=== PATIENT | female | born 1940 | race Caucasian/White ===

== ENCOUNTER 2017-12-17 15:57 | Inpatient (IN) | payer OTHER, MEDICARE ==
[~2017-12-17] VITALS: Ht 165.1 cm; Wt 99.8 kg
[~2017-12-17 15:57] MED LIST: ASPIRIN CHILDRE81 MG PO; ASPIRIN81 M4 PO; CALTRATE 600600 MG PO; CELEBREX200 MG PO; EZFE 200200 MG PO; LEVOTHYROXINE100 MC1 PO; LOPERAMIDE2 MG PO; LOSARTAN POTASS25 M1 PO; MULTIVITAMINS1 EAC9 PO; OMEPRAZOLE20 MG PO; TYLENOL EXTRA500 M2 PO; VITAMIN D1000 UNIT PO; VITAMIN D3400 UNI1 PO; ZOCOR20 M1 PO
[2017-12-17 16:30] LABS: ABSOLUTE BASOPHIL COUNT 0 /CUMM (0.0-0.2); ABSOLUTE EOSINOPHIL COUNT 0.2 /CUMM (0.0-0.7); ABSOLUTE GRANULOCYTE CT 4.4 /CUMM (1.4-6.5); ABSOLUTE LYMPH COUNT 1.3 /CUMM (1.2-3.4); ABSOLUTE MONOCYTE COUNT 0.4 /CUMM (0.10-0.60); BASOPHIL % 0.7 % (0.0-2.0); EOSINOPHIL % 2.4 % (0-5); GRANULOCYTE % 69.1 % (42.2-75.2); MEAN CORPUSCULAR HGB 26.5 PG (27.0-31.0); MEAN CORPUSCULAR HGB CONC 32.5 G/DL (33.0-37.0); MEAN CORPUSCULAR VOLUME 81.5 FL (81.0-99.0); MEAN PLATELET VOLUME 7.1 FL (7.4-10.4); PLATELET COUNT 416 /CUMM (130-400); RBC DISTRIBUTION WIDTH 15.4 % (11.5-14.5); RED BLOOD CELL CT 4.29 /CUMM (4.20-5.40); WHITE BLOOD CELL COUNT 6.3 /CUMM (4.8-10.8)
--- NOTE | 2017-12-17 17:45 | ED GENERAL ADULT ---
History of Present Illness General Chief Complaint: Chest Pain Stated Complaint: PT SIB BY DR SHARPE CHEST DISCOMFORT Source: patient Exam Limitations: no limitations Allergies Coded Allergies: No Known Allergies (12/17/17) Reconcile Medications Acetaminophen (8 Hour Pain Relief) 650 MG TABLET.ER 2 TAB PO DAILY PAIN ( Reported) Aspirin (Aspirin*) 81 MG TAB.CHEW 1 TAB PO DAILY HEART HEALTH (Reported) Calcium Carbonate/Vitamin D3 (Caltrate 600 + D Tablet) (Unknown Strength) TABLET (Unknown Dose) PO DAILY SUPPLEMENT (Reported) Cholecalciferol (Vitamin D3) (Vitamin D) 1,000 UNIT TABLET 1 TAB PO DAILY VITAMIN (Reported) Colchicine 0.6 MG TABLET 1 TAB PO DAILY INFLAMMATORY (Reported) Ferrous Sulfate 325 MG (65 MG IRON) TABLET 1 TAB PO QWED SUPPLEMENT (Reported ) Levothyroxine Sodium 100 MCG TABLET 1 TAB PO DAILY THYROID (Reported) Losartan Potassium 25 MG TABLET 1 TAB PO DAILY HTN (Reported) Multiple Vitamin (Multivitamins) 1 EACH TABLET 1 TAB PO TUESSAT VITAMIN ( Reported) Simvastatin (Zocor*) 20 MG TABLET 1 TAB PO QPM CHOLESTEROL (Reported) Vitamin E 400 UNIT CAPSULE 1 CAP PO DAILY SUPPLEMENT (Reported) Triage Note: PT SENT TO ED BY DR. SHARPE FOR INTERMITTENT L SIDED RIB PAIN THAT OCCASIONALLY ACHES INTO MID STERNAL CHEST AREA. PT REPORTS PAIN IS SOMETIMES WORSE WITH MOVEMENT. REPORTS SOME SOB WITH EXERTION ONLY. DENIES NUMBNESS OR TINGING. Triage Nurses Notes Reviewed? yes Onset: Gradual Duration: week(s): Timing: INTERMITTENT HPI: 77 y/o female with h/o HTN, HLD, and hypothyroid presenting with intermittent chest pain over the past several weeks. Patient reports intermittent left-sided chest pain, that usually has no worsening or alleviating factors, but is sometimes worse with movement. Reports that she has occasional dyspnea on exertion. Denies diaphoresis, nausea, vomiting, palpitations, leg swelling. Patient has been seen by Dr. Sharpe who noted elevated inflammatory markers and outpatient labs. Patient was referred into the emergency department for echocardiogram. (Whitney Valdez) Vital Signs & Intake/Output Vital Signs & Intake/Output Vital Signs Date Time Temp Pulse Resp B/P B/P Pulse O2 O2 Flow FiO2 Mean Ox Delivery Rate 12/176 97.8 85 17 144/68 98 Room Air 12/17 1902 98.1 81 18 148/72 98 Room Air 12/17 1815 Room Air 12/17 1613 97.6 92 18 131/77 98 Room Air (Pili BAY,Sergei Mead) Past History Travel History Traveled to [place] past 21 day No Medical History Any Pertinent Medical History? 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 No (Whitney Valdez) Review of Systems Review of Systems Constitutional: Reports: no symptoms. EENTM: Reports: no symptoms. Respiratory: Reports: no symptoms. Cardiovascular: Reports: see HPI. GI: Reports: no symptoms. Genitourinary: Reports: no symptoms. Musculoskeletal: Reports: no symptoms. Skin: Reports: no symptoms. Neurological/Psychological: Reports: no symptoms. Hematologic/Endocrine: Reports: no symptoms. Immunologic/Allergic: Reports: no symptoms. (Whitney Valdez) Physical Exam Physical Exam General Appearance: well developed/nourished, no apparent distress, alert, awake , comfortable Head: atraumatic, normal appearance Eyes: Bilateral: normal appearance. Neck: normal inspection Respiratory: normal breath sounds, lungs clear Cardiovascular: regular rate/rhythm Gastrointestinal: soft, non-tender Back: normal inspection Extremities: normal inspection Neurologic/Psych: awake, alert, oriented x 3, normal gait, normal mood/affect Skin: intact, normal color, warm/dry Core Measures ACS in differential dx? No CVA/TIA Diagnosis: No Sepsis Present: No Sepsis Focused Exam Completed? No (Whitney Valdez) Progress Differential Diagnoses I considered the following diagnoses in my evaluation of the patient: [ACS versus angina versus pericarditis versus pericardial effusion versus Not versus PE versus pneumothorax versus pneumonia versus aortic dissection versus Boerhaave's versus MSK strain] Initial ED EKG: NSR, no ST T wave changes (Whitney Valdez) Plan of Care: Orders Procedure Date/time Status Heart Healthy Diet 12/18 B Active BASIC ELECTROLYTES PLUS BUN&CR 12/18 599 Active Saline Lock 12/17 2033 Active Pathway - chart 12/17 2033 Active House Staff 12/17 2033 Active Patient Data 12/[address] in observation 12/17 2001 Active Misc Message 12/17 2001 Active ED Holding Orders 12/17 2001 Active Vital Signs 12/17 2001 Active Code Status 12/17 2001 Active Add-on Test (ER Only) 12/17 181 Active Add-on Test (ER Only) 12/17 1746 Active Add-on Test (ER Only) 12/17 174 Active MAGNESIUM 12/17 161 Complete WESTERGREN SED RATE 12/17 161 Complete C-REACTIVE PROTEIN 12/17 161 Complete B-TYPE NATRIURETIC PEP (BNP) 12/17 161 Complete Intake & Output 12/17 161 Active TROPONIN LEVEL 12/17 161 Complete COMPREHENSIVE METABOLIC PANEL 12/17 161 Complete CBC WITHOUT DIFFERENTIAL 12/17 161 Complete EKG 12/17 1559 Active VTE Mechanical Prophylaxis 12/17 UNK Active MISTAKE 12/17 UNK Active Intake & Output 12/17 UNK Active Current Medications Sig/Britney Start time Last Medication Dose Stop Time Status Admin Enoxaparin Sodium 40 MG DAILY 12/18 899 AC (Lovenox) Colchicine 600 MCG BID 12/17 1929 AC 12/17 (Colchicine 600MCG 2037 Tab) Methylprednisolone 40 MG DAILY 12/17 1929 AC 12/17 (Solumedrol) 2037 Laboratory Tests 12/17/178: Anion Gap 10, Estimated GFR 54 L, BUN/Creatinine Ratio 17.0, Glucose 113 H, Calcium 9.6, Magnesium 2.2, Total Bilirubin 0.6, AST 22, ALT 33, Alkaline Phosphatase 135 H, Troponin I < 0.01, C-Reactive Prot, Quant 4.4 H, Pro-B- Natriuretic Pept 1000 H, Total Protein 6.7, Albumin 3.5, Globulin 3.2, Albumin/ Globulin Ratio 1.1, CBC w Diff NO MAN DIFF REQ, RBC 4.29, MCV 81.5, MCH 26.5 L, MCHC 32.5 L, RDW 15.4 H, MPV 7.1 L, Gran % 69.1, Lymphocytes % 20.9, Monocytes % 6.9, Eosinophils % 2.4, Basophils % 0.7, Absolute Granulocytes 4.4, Absolute Lymphocytes 1.3, Absolute Monocytes 0.4, Absolute Eosinophils 0.2, Absolute Basophils 0, ESR Westergren 75 H EKG is nonischemic Labs show elevated ESR and CRP, BMP is also mildly elevated to 1000 Echo CONCLUSIONS 1. Normal EF of 60%. 2. Mild pulmonic insufficiency. 3. Small pericardial effusion with mild tamponade physiology. Discussed with Dr. Sharpe and will plan for admission to [facility] with colchicine twice a day and 40 mg of Solu-Medrol daily. Discussed admission with Dr. Patterson. (Whitney Valdez) (Pili BAY,Sergei Mead) Departure Departure Disposition: STILL A PATIENT Condition: Stable Clinical Impression Primary Impression: Pericarditis Secondary Impressions: Pericardial effusion Referrals: Kiet BAY,Sadi Romero (PCP/Family) Departure Forms: Customer Survey General Discharge Information Observation Note Spoke With: Law Patterson MD Physician Advisor Notified: EDINSON BAY,LINDSEY Mejía (case management) Place Patient In: Non-ED OBS Care Area Rationale for Observation: My rational for observation is as follows [IV steroids, colchicine, hemodynamic monitoring, telemetry monitoring, cardiology consultation]. (Whitney Valdez) PA/SUBMARINE ADVISORY TEAM WATCH OFFICER Co-Sign Statement Statement: ED Attending supervision documentation- [X] I saw and evaluated the patient. I have also reviewed all the pertinent lab results and diagnostic results. I agree with the findings and the plan of care as documented in the PA's/SUBMARINE ADVISORY TEAM WATCH OFFICER's documentation. Patient presents at the request of her primary care physician for a pericardial effusion seen on the CAT scan. The patient at this point is comfortable with an unremarkable heart and lung examination. [] I have reviewed the ED Record and agree with the PA's/SUBMARINE ADVISORY TEAM WATCH OFFICER's documentation. [] Additions or exceptions (if any) to the PAs/SUBMARINE ADVISORY TEAM WATCH OFFICER's note and plan are summarized below: [] (Pili BAY,Sergei Mead) Critical Care Note Critical Care Note Critical Care Time: non-applicable (Whitney Valdez)
[2017-12-17] MEDS ORDERED: COLCHICINE0.6 M2 PO (18:02)
[2017-12-17] MEDS ORDERED: CALTRATE 600 +1 EACH PO (18:02)
[2017-12-17] MEDS ORDERED: VITAMIN E400 UNI5 PO (18:03)
[2017-12-17] MEDS ORDERED: FERROUS SULFAT325 M3 PO (18:03)
[2017-12-17] MEDS ORDERED: 8 HOUR PAIN RE650 M1 PO (18:04)
--- NOTE | 2017-12-17 19:22 | ECHOCARDIOGRAM REPORT ---
BOBBY WRIGHT Age: 77 : 1940 Gender: F Exam Date: 12/17/2017 17:13 Exam Location: [facility] Ht (in): 65 Wt (lb): 220 BSA: 2.18 BP: 131 / 77 Ordering Physician: Sergei Alejandre MD Referring Physician: Sergei Alejandre MD Technologist: Nate aBrker [facility] Room Number: [id number] Indications: PERICARDIAL EFFUSION Rhythm: sinus tachycardia Technical Quality: fair FINDINGS Left Ventricle Normal left ventricular size, wall thickness and systolic function with no obvious regional wall motion abnormalities. Normal left ventricular diastolic filling pattern for age. The ejection fraction is visually estimated at 60%. Right Ventricle The right ventricle is normal in size and function. Right Atrium The right atrium is normal in size. Left Atrium The left atrium is normal in size. The interatrial septum is intact. Mitral Valve The mitral valve demonstrates mild annular calcification with normal function. There is no mitral regurgitation. Aortic Valve Structurally normal aortic valve without significant sclerosis or stenosis. There is no aortic regurgitation. Tricuspid Valve The tricuspid valve is normal in structure and function. There is no tricuspid regurgitation. Pulmonic Valve Structurally normal pulmonic valve. There is mild pulmonic regurgitation. Pericardium Normal pericardium with small effusion. Right atrial diastolic collapse is noted along with respiratory variation across the mitral valve consistent with mild tamponade physiology. No pleural effusion. Great Vessels Normal aortic root dimension. The aortic arch and great vessels are well seen and are normal. CONCLUSIONS 1. Normal EF of 60%. 2. Mild pulmonic insufficiency. 3. Small pericardial effusion with mild tamponade physiology. Kel Beebe M.D. (Electronically Signed) Final Date: 17 December 2017 19:21 MEASUREMENTS (Male / Female) Normal Values 2D ECHO LV Diastolic Diameter PLAX 4.9 cm 4.2 - 5.9 / 3.9 - 5.3 cm LV Systolic Diameter PLAX 2.6 cm 2.1 - 4.0 cm LV Fractional Shortening PLAX 46.9 % 25 - 46 % LV Ejection Fraction 2D Teich 78.2 % IVS Diastolic Thickness 1.3 cm LVPW Diastolic Thickness 1.1 cm LV Relative Wall Thickness 0.5 LA Systolic Diameter LX 3.9 cm 3.0 - 4.0 / 2.7 - 3.8 cm LV Diastolic Length 4C 7.1 cm 6.9 - 10.3 cm LV Diastolic Area 4C 31.1 cm LV Diastolic Volume MOD 4C 112.0 cm LV Ejection Fraction MOD 4C 71.4 % LV Stroke Volume MOD 4C 80.0 cm LV Cardiac Index MOD 4C 2857.5 cm/minm LV Systolic Length 4C 5.2 cm LV Systolic Area 4C 13.8 cm LV Systolic Volume MOD 4C 32.0 cm LV Diastolic Volume 4C AL 116.0 cm 85 - 139 / 69 - 109 cm LV Systolic Volume 4C AL 31.2 cm LV Ejection Fraction 4C AL 73.1 % LV Stroke Volume 4C AL 84.8 cm LV Cardiac Index 4C AL 3027.8 cm/minm Ascending Aorta Diameter 3.2 cm DOPPLER AV Peak Velocity 153.0 cm/s AV Peak Gradient 9.4 mmHg LVOT Peak Velocity 88.8 cm/s LVOT Peak Gradient 3.2 mmHg PV Peak Velocity 118.0 cm/s PV Peak Gradient 5.6 mmHg
--- NOTE | 2017-12-17 20:15 | History & Physical ---
NoemiNando 12/17/17 2013: General Information and HPI MD Statement: I have seen and personally examined BOBBY WRIGHT and documented this H&P. The patient is a 77 year old F who presented with a patient stated chief complaint of [chest pain]. Source of Information: patient, family Exam Limitations: no limitations History of Present Illness: The patient is a 77 years old lady who was reffered to the ED by Dr. Santa due to the pericardial effusion that was seen in her chest CT scan ans also elevated ESR (75) and CRP (4.4). She was accompained by his two daughters. The patient has a history of on and off chest pain, the first episode of her chest pain was in 2013 when she was in [place], an ECHO was done for her which she does not recall any abnormality (no access to the report). After that she has exprienced the chest pain from last April, as she states, when she has chest pain it lasts for a couple of days and then it relieves by itself. Deep breath and sneezing and lying back worsens her pain but leaning forward does not improve it. This pain was at most 8/10 previously when it was severe. Tonight she has no pain (0/10) but when she takes a deep breath she feels mild pain. She was started by Dr. Ponce on colchicine 600mg BID from November 20, she developed diarrhea and reduced it to QD. She has started to take prednisolone 40 mg QD in the ED. She believes that cochicine has not helped her with her symptomes. She denies any history of nausea/vomitting, fever, palpitation. she states that she has chills when she has chest pain. Labs: WBC 6.3, H&H 11.4 and 35, platelets 416, ESR 75 Sodium 143, potassium 4.5, chloride 105, bicarbonate 28, BUN 17, creatinine 1, glucose 113, alkaline phosphatase 135, AST 22, ALT 33, T bili 0.6, CRP 4.4, troponin less than 0.01, BNP 1000 Imaging: Chest CT: IMPRESSION: 1. Consolidation of the left lung base with associated small pleural effusion. Clinical correlation is recommended. An acute infection process is within the differential. 2. Interval development of small to moderate sized pericardial effusion. 3. There is mild mediastinal shift to the left which appears mildly more prominent than cross-sectional imaging from May 2017. This difference may be due to differences in patient positioning. Echo: 1. Normal EF of 60%. 2. Mild pulmonic insufficiency. 3. Small pericardial effusion with mild tamponade physiology. Allergies/Medications Allergies: Coded Allergies: No Known Allergies (12/17/17) Home Med list Acetaminophen (8 Hour Pain Relief) 650 MG TABLET.ER 2 TAB PO DAILY PAIN ( Reported) Aspirin (Aspirin*) 81 MG TAB.CHEW 1 TAB PO DAILY HEART HEALTH (Reported) Calcium Carbonate/Vitamin D3 (Caltrate 600 + D Tablet) (Unknown Strength) TABLET (Unknown Dose) PO DAILY SUPPLEMENT (Reported) Cholecalciferol (Vitamin D3) (Vitamin D) 1,000 UNIT TABLET 1 TAB PO DAILY VITAMIN (Reported) Colchicine 0.6 MG TABLET 1 TAB PO DAILY INFLAMMATORY (Reported) Ferrous Sulfate 325 MG (65 MG IRON) TABLET 1 TAB PO QWED SUPPLEMENT (Reported ) Levothyroxine Sodium 100 MCG TABLET 1 TAB PO DAILY THYROID (Reported) Losartan Potassium 25 MG TABLET 1 TAB PO DAILY HTN (Reported) Multiple Vitamin (Multivitamins) 1 EACH TABLET 1 TAB PO TUESSAT VITAMIN ( Reported) Simvastatin (Zocor*) 20 MG TABLET 1 TAB PO QPM CHOLESTEROL (Reported) Vitamin E 400 UNIT CAPSULE 1 CAP PO DAILY SUPPLEMENT (Reported) Compliance With Home Meds: GOOD Past History Travel History Traveled to [place] past 21 day No Medical History Neurological: NONE EENT: cataracts Cardiovascular: hypertension, hyperlipidemia, PVD Respiratory: NONE Gastrointestinal: GERD Hepatic: NONE Renal: NONE Musculoskeletal: NONE (bilateral knee replacement), osteoarthritis Psychiatric: NONE Endocrine: hypothyroidism Blood Disorders: NONE Cancer(s): NONE 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 EENTM: Reports: no symptoms. Cardiovascular: Reports: no symptoms. Respiratory: Reports: no symptoms. GI: Reports: no symptoms. Genitourinary: Reports: no symptoms. Exam & Diagnostic Data Last 24 Hrs of Vital Signs/I&O Vital Signs Date Time Temp Pulse Resp B/P B/P Pulse O2 O2 Flow FiO2 Mean Ox Delivery Rate 12/17 1902 98.1 81 18 148/72 98 Room Air 12/17 1815 Room Air 12/17 1613 97.6 92 18 131/77 98 Room Air Physical Exam General Appearance Alert, Oriented X3, Cooperative Skin No Rashes Skin Temp/Moisture Exam: Warm/Dry Sepsis Skin Exam (color): Normal for Ethnicity HEENT Atraumatic Neck Supple, No JVD Cardiovascular Regular Rate, Normal S1, Normal S2 (Muffled heart sounds) Lungs Clear to Auscultation, Normal Air Movement Abdomen Normal Bowel Sounds, Soft, No Tenderness Neurological Normal Speech, Strength at 5/5 X4 Ext, Normal Tone, Cranial Nerves 3-12 NL Extremities No Clubbing, No Cyanosis, Normal Pulses Vascular Normal Pulses Last 24 Hrs of Labs/Aureliano: Laboratory Tests 12/17/178: Anion Gap 10, Estimated GFR 54 L, BUN/Creatinine Ratio 17.0, Glucose 113 H, Calcium 9.6, Magnesium 2.2, Total Bilirubin 0.6, AST 22, ALT 33, Alkaline Phosphatase 135 H, Troponin I < 0.01, C-Reactive Prot, Quant 4.4 H, Pro-B- Natriuretic Pept 1000 H, Total Protein 6.7, Albumin 3.5, Globulin 3.2, Albumin/ Globulin Ratio 1.1, CBC w Diff NO MAN DIFF REQ, RBC 4.29, MCV 81.5, MCH 26.5 L, MCHC 32.5 L, RDW 15.4 H, MPV 7.1 L, Gran % 69.1, Lymphocytes % 20.9, Monocytes % 6.9, Eosinophils % 2.4, Basophils % 0.7, Absolute Granulocytes 4.4, Absolute Lymphocytes 1.3, Absolute Monocytes 0.4, Absolute Eosinophils 0.2, Absolute Basophils 0, ESR Westergren 75 H Assessment/Plan Assessment: The patient was refered here because of pericardial effusion that was seen on CT scan of her chest. In ECHO mild pericardial effusion is seen and the patient has chest pain on deep breath. She has been on colchicine BID from November 20, she reduced it to QD from last week. The dose is increased to BID again and started prednisolone 40 mgs. ECGs were also done. We could also consider cardiology consult for the patient. As Ranked By This Provider Problem List: 1. Pericardial effusion Core Measures/Misc (02/28) Acute Coronary Syndrome ACS Diagnosis: No Congestive Heart Failure Congestive Heart Failure Diagnosis No Cerebrovascular Accident CVA/TIA Diagnosis: No VTE (View Protocol) VTE Risk Factors Age>40 No Mechanical VTE Prophylaxis d/t N/A MechProphylax Ordered No VTE Pharm Prophylaxis d/t NA PharmProphylax ordered Sepsis (View protocol) Sepsis Present: No If YES complete Sepsis Event Note If YES complete Sepsis Event Note Elio Archuleta MD 12/17/172014: Core Measures/Misc (02/28) Sepsis (View protocol) If YES complete Sepsis Event Note If YES complete Sepsis Event Note Resident Review Statement Resident Statement: examined this patient, discussed with internal medicine veterinary technician, discussed with family, reviewed EMR data (avail) Other Findings: Patient is a 77-year-old female with past medical history of pleurisy, GERD, hiatal hernia, arthritis, hypothyroidism, hyperlipidemia, PVD, history of left sided chest pain in April 2017 presenting this admission with left-sided rib pain. Patient was sent in by her PCP, Dr. Santa due to intermittent left-sided chest pain. Patient had CT scan done on 12/13 which showed a new small to moderate sized pericardial effusion and consolidation of the left lung base with a small pleural effusion. Patient reports that she has had left-sided chest pain since April which has been off and on and previously had the same type of chest pain in 2013. She reports that over the past few weeks the pain has worsened. He reports that pain is exacerbated by movement and upon deep inspiration. States that at its worst pain has been an 8 out of 10 in severity and is currently 0 out of 10. Reports that she has taken ibuprofen to help relieve the pain. Patient was started on colchicine approximately 1 month ago. Patient was initially taking colchicine twice a day however due to significant diarrhea was decreased to once daily over the past week. Patient reports shortness of breath with significant exertion. Reports occasional chills. Denies fever, nausea/ vomiting, palpitations, lightheadedness, dizziness. Past medical history: As above Past surgical history: Appendectomy, cholecystectomy, bilateral knee replacements, cataracts Family history: No significant cardiac history In the ED patient was given colchicine 600 mg and started on IV Solu-Medrol Vitals: MAXIMUM TEMPERATURE 98.1, heart rate 81, respiration rate 18, blood pressure 148/72, saturating at 98% on room air Physical exam Gen.: Resting comfortably seated at the edge of the bed HEENT: Normocephalic, atraumatic, pupils equal and reactive to light and accommodation, extraocular movements intact CVS: Regular rate rhythm, no murmurs, rubs or gallops appreciated Lungs: Clear to auscultation bilaterally Abdomen: Soft, nontender, nondistended, positive bowel sounds Neuro: Cranial nerves II through XII intact, motor and sensation intact Extremities: 1+ pitting edema bilaterally, left lower extremity slightly more swollen (chronic), palpable pulses 2+ Labs: WBC 6.3, H&H 11.4 and 35, platelets 416, ESR 75 Sodium 143, potassium 4.5, chloride 105, bicarbonate 28, BUN 17, creatinine 1, glucose 113, alkaline phosphatase 135, AST 22, ALT 33, T bili 0.6, CRP 4.4, troponin less than 0.01, BNP 1000 Imaging: Chest CT: IMPRESSION: 1. Consolidation of the left lung base with associated small pleural effusion. Clinical correlation is recommended. An acute infection process is within the differential. 2. Interval development of small to moderate sized pericardial effusion. 3. There is mild mediastinal shift to the left which appears mildly more prominent than cross-sectional imaging from May 2017. This difference may be due to differences in patient positioning. Echo: 1. Normal EF of 60%. 2. Mild pulmonic insufficiency. 3. Small pericardial effusion with mild tamponade physiology. Assessment and plan: Patient is a 77-year-old female with history of pleurisy, recurrent left sided chest pain and recent CT and echo revealing a small pericardial effusion with elevated ESR, CRP and elevated BNP. Findings are concerning for pericarditis. Patient has been started on colchicine 600 mg twice a day and IV Solu-Medrol 40 mg daily in the ED. Observe on telemetry Continue telemetry monitoring Repeat EKG and troponins Continue colchicine 600 mg twice a day and IV Solu-Medrol 40 mg daily Investigate further possible causes of pericarditis including autoimmune disorders such as SLE, mixed connective tissue disorder, rheumatoid. Other etiologies include viral and bacterial infection and malignancy. Patient may require pericardial biopsy. Continue home medications: Levothyroxine, aspirin, losartan, atorvastatin Started on metformin here (patient is prediabetic), Accu-Cheks 3 times a day before meals/daily at bedtime Diet: Diabetic diet Code: DNR/DNI DVT PPx: PURVI Mac MD,[facility] 12/18/17 1332: Core Measures/Misc (02/28) Sepsis (View protocol) If YES complete Sepsis Event Note If YES complete Sepsis Event Note Attending MD Review Statement Attending Statement Attending MD Statement: examined this patient, discuss w/resident/PA/ALL TERRAIN VEHICLE RACER, agreed w/resident/PA/ALL TERRAIN VEHICLE RACER, discussed with family, reviewed EMR data (avail), discussed with nursing, discussed with case mgmt, reviewed images, amended to note Attending Assessment/Plan: Seen in ed Discussed with family Patient is a 77-year-old female with history of pleurisy, recurrent left sided chest pain and recent CT and echo revealing a small pericardial effusion with elevated ESR, CRP and elevated BNP. Findings are concerning for pericarditis. Patient has been started on colchicine 600 mg twice a day and IV Solu-Medrol 40 mg daily in the ED. Issues Pleuropericarditis prob idiopathic with previous inflammatory work up neg Pericardial effusion with mild tamponade physiology Rule out other causes likel malignancy (seems unlikely) Glucose into CKD with previous intol to NSAID Hypothyroid and htn and hld stable REC IV fluids for 48 hrs Po prednisone 40 qd Colchicine bid Check SHAYY, Rheumatoid panel, Esr, Scleroderma antibody, cpk, VON level Will have thoracic consult on wednesday for possible VATS with pleural bx and eval Recheck echo on wednesday Will follow
[2017-12-17 23:20] VITALS: BP 138/85
[2017-12-18 06:27] VITALS: BP 124/74
[2017-12-18 08:41] LABS: ABSOLUTE BASOPHIL COUNT 0 /CUMM (0.0-0.2); ABSOLUTE EOSINOPHIL COUNT 0 /CUMM (0.0-0.7); ABSOLUTE GRANULOCYTE CT 4.6 /CUMM (1.4-6.5); ABSOLUTE LYMPH COUNT 0.5 /CUMM (1.2-3.4); ABSOLUTE MONOCYTE COUNT 0 /CUMM (0.10-0.60); BASOPHIL % 0.2 % (0.0-2.0); EOSINOPHIL % 0.1 % (0-5); HEMATOCRIT 35.1 % (37-47); MEAN CORPUSCULAR HGB 26.6 PG (27.0-31.0); MEAN CORPUSCULAR HGB CONC 32.6 G/DL (33.0-37.0); MEAN CORPUSCULAR VOLUME 81.5 FL (81.0-99.0); MEAN PLATELET VOLUME 8.1 FL (7.4-10.4); PLATELET COUNT 343 /CUMM (130-400); RBC DISTRIBUTION WIDTH 14.8 % (11.5-14.5); RED BLOOD CELL CT 4.31 /CUMM (4.20-5.40); WHITE BLOOD CELL COUNT 5.1 /CUMM (4.8-10.8)
--- NOTE | 2017-12-18 08:42 | PN- Housestaff ---
Jaki BAY,Winifred 12/18/17 0841: Subjective Follow-up For: Chest pain Echo showing pericardial effusion Complaints: no complaints Subjective: Patient seen and examined at bedside no overnight events. Patient denies chest pain, palpitations. She says overall she feels fine. Review of Systems Constitutional: Reports: no symptoms. Objective Last 24 Hrs of Vital Signs/I&O Vital Signs Date Time Temp Pulse Resp B/P B/P Pulse O2 O2 Flow FiO2 Mean Ox Delivery Rate 12/18 0632 90 124/74 12/18 0627 97.5 90 20 124/74 96 Room Air 12/17 2320 97.8 94 20 138/85 98 Room Air 12/17 2106 97.8 85 17 144/68 98 Room Air 12/17 1902 98.1 81 18 148/72 98 Room Air 12/17 1815 Room Air 12/17 1613 97.6 92 18 131/77 98 Room Air Intake & Output 12/18 1600 12/18 0800 12/18 0000 Intake Total 450 0 Output Total 200 210 Balance -200 240 0 Intake, IV 450 Intake, Oral 0 Number 1 Bowel Movements Output, Urine 200 210 Patient 220 lb Weight Weight Reported by Patient Measurement Method Physical Exam General Appearance: Alert, Oriented X3, Cooperative Cardiovascular: Regular Rate, Normal S1, Normal S2, No Murmurs Lungs: Clear to Auscultation Abdomen: Soft, No Tenderness, No Hepatospenomegaly Neurological: Normal Speech, Strength at 5/5 X4 Ext, Normal Tone, Sensation Intact Current Medications: Current Medications Sig/Britney Start time Last Medication Dose Route Stop Time Status Admin Aspirin 81 MG DAILY 12/18 899 AC 12/18 PO 0730 Atorvastatin Calcium 10 MG 12/18 AC PO Colchicine 600 MCG BID 12/17 1929 AC 12/18 PO 0729 Enoxaparin Sodium 40 MG DAILY 12/18 899 AC 12/18 SC 0737 Levothyroxine Sodium 0.1 MG DAILY AC 12/18 699 AC 12/18 PO 0644 Losartan Potassium 25 MG DAILY 12/18 899 AC 12/18 PO 0732 Metformin HCl 500 MG 0800,1700 12/18 08 AC 12/18 PO 0731 Methylprednisolone 0 .STK-MED ONE 12/17 2028 DC .ROUTE Methylprednisolone 40 MG DAILY 12/17 1929 AC 12/18 IV 0732 Sodium Chloride 1,000 ML Q13H 12/18 0015 AC 12/18 IV 12/18 1314 0034 Sodium Chloride 500 ML BOLUS ONE 12/17 1929 DC 12/17 IV 12/17 Vitamin E 400 IU DAILY 12/18 0900 AC 12/18 PO 0730 Last 24 Hrs of Lab/Aureliano Results Last 24 Hrs of Labs/Mics: Laboratory Tests 12/18/17 0915: SHAYY Titer Pending, Anti-Nuclear Antibody Pending 12/18/17 0915: OWEN (Sm & SHIP DESIGN TEACHER) Interp Pending 12/18/17 0636: Anion Gap 10, Estimated GFR > 60, BUN/Creatinine Ratio 21.3, Troponin I < 0.01, CBC w Diff NO MAN DIFF REQ, RBC 4.31, MCV 81.5, MCH 26.6 L, MCHC 32.6 L, RDW 14.8 H, MPV 8.1, Gran % 89.3 H, Lymphocytes % 9.5 L, Monocytes % 0.9 L, Eosinophils % 0.1, Basophils % 0.2, Absolute Granulocytes 4.6, Absolute Lymphocytes 0.5 L, Absolute Monocytes 0 L, Absolute Eosinophils 0, Absolute Basophils 0, Rheum Factor Semi-Quant < 8.6 12/18/17 0040: Urine Color YEL, Urine Clarity CLEAR, Urine pH 6.0, Ur Specific [place] 1.015, Urine Protein NEG, Urine Ketones NEG, Urine Nitrite NEG, Urine Bilirubin NEG, Urine Urobilinogen 1.0, Ur Leukocyte Esterase NEG, Ur Microscopic EXAM NOT REQUIRED, Urine Hemoglobin NEG, Urine Glucose NEG 12/17/17 2310: Troponin I < 0.01 12/17/17 1618: Anion Gap 10, Estimated GFR 54 L, BUN/Creatinine Ratio 17.0, Glucose 113 H, Calcium 9.6, Magnesium 2.2, Total Bilirubin 0.6, AST 22, ALT 33, Alkaline Phosphatase 135 H, Troponin I < 0.01, C-Reactive Prot, Quant 4.4 H, Pro-B- Natriuretic Pept 1000 H, Total Protein 6.7, Albumin 3.5, Globulin 3.2, Albumin/ Globulin Ratio 1.1, CBC w Diff NO MAN DIFF REQ, RBC 4.29, MCV 81.5, MCH 26.5 L, MCHC 32.5 L, RDW 15.4 H, MPV 7.1 L, Gran % 69.1, Lymphocytes % 20.9, Monocytes % 6.9, Eosinophils % 2.4, Basophils % 0.7, Absolute Granulocytes 4.4, Absolute Lymphocytes 1.3, Absolute Monocytes 0.4, Absolute Eosinophils 0.2, Absolute Basophils 0, ESR Westergren 75 H Assessment/Plan Assessment: Patient is a 77-year-old female with past medical history of pleurisy, GERD, hiatal hernia, arthritis, hypothyroidism, hyperlipidemia, PVD, history of left sided chest pain in April 2017 presenting this admission with left-sided rib pain. Assessment and plan 1. Left-sided chest pain most likely secondary due to viral pericarditis/small pericardial effusion 2. Patient was on colchicine 600 once daily which we have increased to twice daily. Watch for diarrhea and leukopenia. 3. Patient might need cardiothoracic consult on Wednesday. Patient might benefit from repeat echo to look at the effusion. 4. We will continue the steroid p.o. 40 daily 5. We will continue levothyroxine, aspirin, losartan, atorvastatin 6. Diabetic diet and Accu-Chek, metformin. 7. CODE STATUS DNR/DNI DVT prophylaxis-Lovenox Pending SHAYY titer, SHAYY antibody, rheumatoid factor, SHIP DESIGN TEACHER and Adler antibody. Await Dr. Santa's recommendations. Problem List: 1. Pericarditis 2. Pericardial effusion Pain Ratin Pain Location: NONE Pain Goal: Remain pain free Pain Plan: NONE Tomorrow's Labs & Rationales: RICHA Santa MD,[facility] 12/18/17 1336: Attending MD Review Statement Attending Statement Attending MD Statement: examined this patient, discuss w/resident/PA/INSOLE LIP TURNER, agreed w/resident/PA/INSOLE LIP TURNER, discussed with family, reviewed EMR data (avail), discussed with nursing, discussed with case mgmt, reviewed images, amended to note Attending Assessment/Plan: Patient is a 77-year-old female with history of pleurisy, recurrent left sided chest pain and recent CT and echo revealing a small pericardial effusion with elevated ESR, CRP and elevated BNP. Findings are concerning for pericarditis. Patient has been started on colchicine 600 mg twice a day and IV Solu-Medrol 40 mg daily in the ED. Issues Pleuropericarditis prob idiopathic with previous inflammatory work up neg Pericardial effusion with mild tamponade physiology Rule out other causes likel malignancy (seems unlikely) Glucose into CKD with previous intol to NSAID Hypothyroid and htn and hld stable REC IV fluids for 48 hrs (can dc in am) Po prednisone 40 qd Colchicine bid Check SHAYY, Rheumatoid panel, Esr, Scleroderma antibody, cpk, VON level Will have thoracic consult on wednesday for possible VATS with pleural bx and eval Recheck echo on wednesday Will follow
[2017-12-18 09:25] LABS: GRANULOCYTE % 89.3 % (42.2-75.2)
[2017-12-18 14:09] VITALS: BP 112/68
--- NOTE | 2017-12-18 20:10 | Cons- Cardiology ---
General Information and HPI Consulting Request Date of Consult: 12/18/17 Requested By: Law Patterson MD History of Present Illness: This patient is a 77 year old female with history of hypertension, dyslipidemia and arthritis who was admitted to the hospital after a CT scan disclosed a mild to moderate pericardial effusion which, by echocardiography, had hemodynamic evidence of mild tamponade. The chest CT was obtained to assess persistent pleural effusions with tachycardia. This patient was first noted to have bilateral pleural effusions about four years ago when she noted chest discomfort. Her symptoms had initially abated but over the past several months returned with recurrent findings of pleural effusions. The patient also reports a pleuritic and positional chest discomfort which improves with sitting upright. There is no clear exertional component to this discomfort which is often sharp in character. There is mild associated shortness of breath without orthopnea. Otherwise this patient denies lightheadedness and has only rare palpitations. Workup included an ESR and CRP both of which were elevated. The patient was started on colchicine which has not helped much. Allergies/Medications Allergies: Coded Allergies: No Known Allergies (12/17/17) Home Med List: Acetaminophen (8 Hour Pain Relief) 650 MG TABLET.ER 2 TAB PO DAILY PAIN ( Reported) Aspirin (Aspirin*) 81 MG TAB.CHEW 1 TAB PO DAILY HEART HEALTH (Reported) Calcium Carbonate/Vitamin D3 (Caltrate 600 + D Tablet) (Unknown Strength) TABLET (Unknown Dose) PO DAILY SUPPLEMENT (Reported) Cholecalciferol (Vitamin D3) (Vitamin D) 1,000 UNIT TABLET 1 TAB PO DAILY VITAMIN (Reported) Colchicine 0.6 MG TABLET 1 TAB PO DAILY INFLAMMATORY (Reported) Ferrous Sulfate 325 MG (65 MG IRON) TABLET 1 TAB PO QWED SUPPLEMENT (Reported ) Levothyroxine Sodium 100 MCG TABLET 1 TAB PO DAILY THYROID (Reported) Losartan Potassium 25 MG TABLET 1 TAB PO DAILY HTN (Reported) Multiple Vitamin (Multivitamins) 1 EACH TABLET 1 TAB PO TUESSAT VITAMIN ( Reported) Simvastatin (Zocor*) 20 MG TABLET 1 TAB PO QPM CHOLESTEROL (Reported) Vitamin E 400 UNIT CAPSULE 1 CAP PO DAILY SUPPLEMENT (Reported) Review of Systems Review of Systems: chills Past History Travel History Traveled to [place] past 21 day No Medical History Blood Transfusion Hx: No Neurological: NONE EENT: cataracts Cardiovascular: hypertension, hyperlipidemia, PVD Respiratory: NONE Gastrointestinal: GERD Hepatic: NONE Renal: NONE Musculoskeletal: NONE (bilateral knee replacement), osteoarthritis Psychiatric: NONE Endocrine: hypothyroidism Blood Disorders: NONE Cancer(s): NONE 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/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: UTERINE PROLAPSE Surgical History Surgical History: non-contributory, appendectomy, knee replacement Psychosocial History Smoking Status: Unknown If Ever Smoked ETOH Use: denies use Illicit Drug Use: denies illicit drug use ECHO Results (as available) Date of last Echo 12/17/17 Exam & Diagnostic Data Vital Signs and I&O Vital Signs Date Time Temp Pulse Resp B/P B/P Pulse O2 O2 Flow FiO2 Mean Ox Delivery Rate 12/18 1409 97.9 77 18 112/68 95 Room Air 12/18 0732 90 124/74 12/18 0627 97.5 90 20 124/74 96 Room Air 12/17 2320 97.8 94 20 138/85 98 Room Air 12/17 2106 97.8 85 17 144/68 98 Room Air Intake & Output 12/18 1600 12/18 0800 12/18 0000 12/17 1600 12/17 0800 12/17 0000 Intake Total 1000 450 0 Output Total 200 210 Balance 800 240 0 Intake, IV 400 450 Intake, Oral 600 0 Number 1 Bowel Movements Output, Urine 200 210 Patient 220 lb Weight Weight Reported by Patient Measurement Method Physical Exam: General: WD/WN female in NAD; alert and oriented x 3 HEENT: NC/AT, PERRL, EOMI Neck: no JVD, no carotid bruit Heart: RRR with rub Lungs: clear bilaterally Abdomen: soft, NT, +ve bowel sounds Extremities: 2+ leg edema bilaterally Assessment/Plan Assessment/Plan * This patient has a small pericardial effusion with mild tamponade physiology of unclear etiology. There was some transient tachcycardia which is improved and the patient has an ECG that shows low voltage in the limb leads. She is not lightheaded however. At this point I would encourage oral intake of fluids but the patient is now euvolemic. * The differential for this pericardial effusion includes but is not limited to infections such as Coxackie B, Echovirus, TB, varicella and other viruses; rheumatologic conditions such as RA and SLE and rheumatoid arthritis; malignancies most commonly lung CA, breast CA, lymphoma and melanoma: certain drugs and post CT syndromes. Uremia and hypothyroidism are also common causes. Some of the above are not likely to be the cause in this patient. Agree with checking an SHAYY and RF since the patient does carry a history or arthritis. Check for Coxackie B and Echovirus and mycoplasma. I would obtain a dermatology consult which can be done as an outpatient to assess for skin malignancy. Check a TSH and free T4. * I would stop colchicine which does not appear effective and begin Indomethcin 50mg TID. * If the patient develops a pleural effusion of large enough size for thoracentesis then I would pursue this procedure for diagnostic purposes and check for cytology and CEA as well as adenosine deaminase etc. Consult Acknowledgment - Thank you for your consult request.
[2017-12-18 22:07] VITALS: BP 128/68
[2017-12-19 06:33] VITALS: BP 122/70
--- NOTE | 2017-12-19 07:24 | PN- Housestaff ---
Subjective Follow-up For: Chest pain, echocardiogram showing pericardial effusion. Complaints: no complaints Tele-Events Since Last Visit: Normal sinus rhythm/first-degree AV block. Heart rate 65-76 Subjective: No complaints, no acute events overnight. Review of Systems Constitutional: Reports: see HPI. Objective Last 24 Hrs of Vital Signs/I&O Vital Signs Date Time Temp Pulse Resp B/P B/P Pulse O2 O2 Flow FiO2 Mean Ox Delivery Rate 12/19 0808 74 122/70 12/19 0633 97.8 74 18 122/70 97 Room Air 12/18 2207 98.0 87 18 128/68 95 Room Air 12/18 1409 97.9 77 18 112/68 95 Room Air Intake & Output 12/19 1600 12/19 0800 12/19 0000 Intake Total 100 50 Output Total 650 600 Balance -550 -550 Intake, Oral 100 50 Output, Urine 650 600 Physical Exam General Appearance: Alert, Oriented X3, Cooperative, No Acute Distress Skin: No Rashes, No Breakdown, No Significant Lesion Skin Temp/Moisture Exam: Cool/Dry HEENT: Atraumatic Neck: Supple Cardiovascular: Regular Rate, Normal S1, Normal S2 Lungs: Clear to Auscultation, Normal Air Movement Abdomen: Normal Bowel Sounds, Soft, No Tenderness, No Hepatospenomegaly Neurological: Normal Gait, Normal Speech, Strength at 5/5 X4 Ext Extremities: No Clubbing, No Cyanosis, No Edema, b/l l/l shows discloloration from venous stasis from years ago Assessment/Plan Assessment: Patient is a pleasant 77-year-old female with past medical history of pleurisy, GERD, hiatal hernia, arthritis, hypothyroidism, hyperlipidemia, PVD, left sided chest pain, now presenting with left-sided rib pain. Vitals this morning: Temperature 97.8, pulse 74, respiratory rate 18, blood pressure 122/70, 97% on room air Labs: WBC 7.9, hemoglobin 10.5, hematocrit 32.7, platelets 328 Labs to follow: RA factor, SHAYY titer, SHAYY, OWEN (Sm &[employer]), SCL 70 antibody, M.pneumoniae IgM and IgG titers pending ECHO on 12/17: Normal EF of 60%., Mild pulmonic insufficiency, Small pericardial effusion with mild tamponade physiology. Assessment and plan: - Left-sided chest pain most likely secondary due to viral pericarditis/small pericardial effusion. We are awaiting for Echo tomorrow -Colchicine: po 600 mg BID. Watch for diarrhea and leukopenia. - steroid p.o. 40 daily - Continue levothyroxine, aspirin, losartan, atorvastatin - thoracic consult on wednesday for possible VATS with pleural bx and eval -dermatology consult which can be done as an outpatient to assess for skin malignancy - repeat echo -Possible Thoracentesis: if pleural effu becomes larger. Check for cytology, THU , ADA -Thoracic consult: eval for a pleural biopsy tomorrow (Dr. Nielsen)-VATS -Diabetic diet and Accu-Chek, metformin. Diet: Carb consistent diet -Code: DNR/DNI -DVT prophylaxis: Lovenox Problem List: 1. Pericardial effusion 2. Pericarditis Pain Ratin Pain Location: none Pain Goal: Remain pain free Pain Plan: remain pain free Tomorrow's Labs & Rationales: bep, cbc, mycoplasma ab
[2017-12-19 08:09] LABS: ABSOLUTE BASOPHIL COUNT 0 /CUMM (0.0-0.2); ABSOLUTE EOSINOPHIL COUNT 0.1 /CUMM (0.0-0.7); ABSOLUTE MONOCYTE COUNT 0.4 /CUMM (0.10-0.60); EOSINOPHIL % 0.8 % (0-5); MEAN CORPUSCULAR HGB 26.5 PG (27.0-31.0); RBC DISTRIBUTION WIDTH 14.9 % (11.5-14.5)
[2017-12-19 08:17] LABS: ABSOLUTE GRANULOCYTE CT 5.7 /CUMM (1.4-6.5); ABSOLUTE LYMPH COUNT 1.6 /CUMM (1.2-3.4); BASOPHIL % 0.4 % (0.0-2.0); GRANULOCYTE % 72.9 % (42.2-75.2); HEMATOCRIT 32.7 % (37-47); MEAN CORPUSCULAR HGB CONC 32.2 G/DL (33.0-37.0); MEAN CORPUSCULAR VOLUME 82.5 FL (81.0-99.0); MEAN PLATELET VOLUME 7.5 FL (7.4-10.4); PLATELET COUNT 328 /CUMM (130-400); RED BLOOD CELL CT 3.96 /CUMM (4.20-5.40)
[2017-12-19 08:21] LABS: WHITE BLOOD CELL COUNT 7.9 /CUMM (4.8-10.8)
--- NOTE | 2017-12-19 12:41 | PN- Pulmonary ---
Subjective HPI/Critical Care Issues: Doing ok stable Objective Current Medications: Current Medications Sig/Britney Start time Last Medication Dose Route Stop Time Status Admin Aspirin 81 MG DAILY 12/18 09 AC 12/19 PO 0808 Atorvastatin Calcium 10 MG 1700 12/18 1700 AC 12/18 PO 1602 Colchicine 600 MCG BID 12/19 2100 AC PO Colchicine 600 MCG BID 12/17 1930 DC 12/19 PO 0808 Enoxaparin Sodium 40 MG DAILY 12/18 899 AC 12/19 SC 0809 Indomethacin Sodium 50 MG TID 12/19 0945 DC PO Levothyroxine Sodium 0.1 MG DAILY AC 12/18 699 AC 12/19 PO 0606 Losartan Potassium 25 MG DAILY 12/18 899 AC 12/19 PO 0808 Metformin HCl 500 MG 0800,1700 12/18 08 AC 12/19 PO 0808 Prednisone 40 MG DAILY 12/19 899 AC 12/19 PO 0809 Vitamin E 400 IU DAILY 12/18 899 AC 12/19 PO 0809 Vital Signs & I&O Last 24 Hrs of Vitals and I&O: Vital Signs Date Time Temp Pulse Resp B/P B/P Pulse O2 O2 Flow FiO2 Mean Ox Delivery Rate 12/20 807 74 122/70 12/19 0633 97.8 74 18 122/70 97 Room Air 12/18 2207 98.0 87 18 128/68 95 Room Air 12/18 1409 97.9 77 18 112/68 95 Room Air Intake & Output 12/19 1600 12/19 0800 12/19 0000 Intake Total 100 50 Output Total 650 600 Balance -550 -550 Intake, Oral 100 50 Output, Urine 650 600 Laboratory Tests 12/19 12/19 12/18 1100 0650 1815 Chemistry TSH (0.270 - 4.200 uIU/mL) 1.490 Free T4 (0.78 - 2.44 ng/dL) 1.51 Hematology CBC w Diff NO MAN DIFF REQ WBC (4.8 - 10.8 /CUMM) 7.9 RBC (4.20 - 5.40 /CUMM) 3.96 L Hgb (12.0 - 16.0 G/DL) 10.5 L Hct (37 - 47 %) 32.7 L MCV (81.0 - 99.0 FL) 82.5 MCH (27.0 - 31.0 PG) 26.5 L MCHC (33.0 - 37.0 G/DL) 32.2 L RDW (11.5 - 14.5 %) 14.9 H Plt Count (130 - 400 /CUMM) 328 MPV (7.4 - 10.4 FL) 7.5 Gran % (42.2 - 75.2 %) 72.9 Lymphocytes % (20.5 - 51.1 %) 20.7 Monocytes % (1.7 - 9.3 %) 5.2 Eosinophils % (0 - 5 %) 0.8 Basophils % (0.0 - 2.0 %) 0.4 Absolute Granulocytes (1.4 - 6.5 /CUMM) 5.7 Absolute Lymphocytes (1.2 - 3.4 /CUMM) 1.6 Absolute Monocytes (0.10 - 0.60 /CUMM) 0.4 Absolute Eosinophils (0.0 - 0.7 /CUMM) 0.1 Absolute Basophils (0.0 - 0.2 /CUMM) 0 ESR Westergren (0 - 20 MM) 57 H Immunology Scl-70 Ab Confirm Pending Miscellaneous Ref Lab Test Result Pending Ref Lab Test Result Pending Serology M.pneumoniae IgG Titer Pending M.pneumoniae IgM (IFA) Pending 12/18 12/18 12/18 0915 0915 0636 Chemistry Sodium (137 - 145 mmol/L) 142 Potassium (3.5 - 5.1 mmol/L) 5.0 Chloride (98 - 107 mmol/L) 106 Carbon Dioxide (22 - 30 mmol/L) 26 Anion Gap (5 - 16) 10 BUN (7 - 17 mg/dL) 17 Creatinine (0.5 - 1.0 mg/dL) 0.8 Estimated GFR (>60 ml/min) > 60 BUN/Creatinine Ratio (7 - 25 %) 21.3 Creatine Kinase (30 - 135 U/L) 57 Troponin I (< 0.11 ng/ml) < 0.01 Hematology CBC w Diff NO MAN DIFF REQ WBC (4.8 - 10.8 /CUMM) 5.1 RBC (4.20 - 5.40 /CUMM) 4.31 Hgb (12.0 - 16.0 G/DL) 11.4 L Hct (37 - 47 %) 35.1 L MCV (81.0 - 99.0 FL) 81.5 MCH (27.0 - 31.0 PG) 26.6 L MCHC (33.0 - 37.0 G/DL) 32.6 L RDW (11.5 - 14.5 %) 14.8 H Plt Count (130 - 400 /CUMM) 343 MPV (7.4 - 10.4 FL) 8.1 Gran % (42.2 - 75.2 %) 89.3 H Lymphocytes % (20.5 - 51.1 %) 9.5 L Monocytes % (1.7 - 9.3 %) 0.9 L Eosinophils % (0 - 5 %) 0.1 Basophils % (0.0 - 2.0 %) 0.2 Absolute Granulocytes (1.4 - 6.5 /CUMM) 4.6 Absolute Lymphocytes (1.2 - 3.4 /CUMM) 0.5 L Absolute Monocytes (0.10 - 0.60 /CUMM) 0 L Absolute Eosinophils (0.0 - 0.7 /CUMM) 0 Absolute Basophils (0.0 - 0.2 /CUMM) 0 Immunology Rheum Factor Semi-Quant (<12 IU/Ml) < 8.6 SHAYY Titer Pending Anti-Nuclear Antibody Pending OWEN (Sm & [employer]APPING [employer]) Interp Pending Toxicology Acetaminophen (10.0 - 30.0 ug/mL) < 10.0 L 12/18 12/17 0040 2310 Chemistry Troponin I (< 0.11 ng/ml) < 0.01 Urines Urine Color (YEL,AMB,STR) YEL Urine Clarity (CLEAR) CLEAR Urine pH (5.0 - 8.0) 6.0 Ur Specific [place] (1.001 - 1.035) 1.015 Urine Protein (NEG,<30 MG/DL) NEG Urine Ketones (NEG) NEG Urine Nitrite (NEG) NEG Urine Bilirubin (NEG) NEG Urine Urobilinogen (0.1 - 1.0 EU/dl) 1.0 Ur Leukocyte Esterase (NEG) NEG Ur Microscopic EXAM NOT REQUIRED Urine Hemoglobin (NEG) NEG Urine Glucose (N MG/DL) NEG 12/17 1618 Chemistry Sodium (137 - 145 mmol/L) 143 Potassium (3.5 - 5.1 mmol/L) 4.5 Chloride (98 - 107 mmol/L) 105 Carbon Dioxide (22 - 30 mmol/L) 28 Anion Gap (5 - 16) 10 BUN (7 - 17 mg/dL) 17 Creatinine (0.5 - 1.0 mg/dL) 1.0 Estimated GFR (>60 ml/min) 54 L BUN/Creatinine Ratio (7 - 25 %) 17.0 Glucose (65 - 99 mg/dL) 113 H Calcium (8.4 - 10.2 mg/dL) 9.6 Magnesium (1.6 - 2.3 mg/dL) 2.2 Total Bilirubin (0.2 - 1.3 mg/dL) 0.6 AST (14 - 36 U/L) 22 ALT (9 - 52 U/L) 33 Alkaline Phosphatase (<127 U/L) 135 H Troponin I (< 0.11 ng/ml) < 0.01 C-Reactive Prot, Quant (<1.0 mg/dL) 4.4 H Nzo-O-Xbohudjefhp Pept (<125 pg/mL) 1000 H Total Protein (6.3 - 8.2 g/dL) 6.7 Albumin (3.5 - 5.0 g/dL) 3.5 Globulin (1.9 - 4.2 gm/dL) 3.2 Albumin/Globulin Ratio (1.1 - 2.2 %) 1.1 Hematology CBC w Diff NO MAN DIFF REQ WBC (4.8 - 10.8 /CUMM) 6.3 RBC (4.20 - 5.40 /CUMM) 4.29 Hgb (12.0 - 16.0 G/DL) 11.4 L Hct (37 - 47 %) 35.0 L MCV (81.0 - 99.0 FL) 81.5 MCH (27.0 - 31.0 PG) 26.5 L MCHC (33.0 - 37.0 G/DL) 32.5 L RDW (11.5 - 14.5 %) 15.4 H Plt Count (130 - 400 /CUMM) 416 H MPV (7.4 - 10.4 FL) 7.1 L Gran % (42.2 - 75.2 %) 69.1 Lymphocytes % (20.5 - 51.1 %) 20.9 Monocytes % (1.7 - 9.3 %) 6.9 Eosinophils % (0 - 5 %) 2.4 Basophils % (0.0 - 2.0 %) 0.7 Absolute Granulocytes (1.4 - 6.5 /CUMM) 4.4 Absolute Lymphocytes (1.2 - 3.4 /CUMM) 1.3 Absolute Monocytes (0.10 - 0.60 /CUMM) 0.4 Absolute Eosinophils (0.0 - 0.7 /CUMM) 0.2 Absolute Basophils (0.0 - 0.2 /CUMM) 0 ESR Westergren (0 - 20 MM) 75 H Impression/Plan Impression/Plan Impression/Plan: Patient is a 77-year-old female with history of pleurisy, recurrent left sided chest pain and recent CT and echo revealing a small pericardial effusion with elevated ESR, CRP and elevated BNP. Findings are concerning for pericarditis. Patient has been started on colchicine 600 mg twice a day and IV Solu-Medrol 40 mg daily in the ED. Issues Pleuropericarditis prob idiopathic with previous inflammatory work up neg Pericardial effusion with mild tamponade physiology better Rule out other causes likel malignancy (seems unlikely) Glucose intol Previous CKD with previous intol to NSAID Hypothyroid and htn and hld stable REC Po prednisone 40 qd Colchicine bid Will have thoracic consult on wednesday for possible VATS with pleural bx and eval Recheck echo on wednesday Will follow
[2017-12-19 14:53] VITALS: BP 118/70
--- NOTE | 2017-12-19 17:02 | PN- Cardiology ---
Subjective Subjective: * Patient feels well today and can ambulate without lightheadedness. No chest discomfort. * sinus rhythm Objective Vital Signs and I&Os Vital Signs Date Time Temp Pulse Resp B/P B/P Pulse O2 O2 Flow FiO2 Mean Ox Delivery Rate 12/19 1453 98.8 79 20 118/70 94 Room Air 12/19 0808 74 122/70 12/19 0633 97.8 74 18 122/70 97 Room Air 12/18 2207 98.0 87 18 128/68 95 Room Air Intake & Output 12/19 1600 12/19 0800 12/19 0000 12/18 1600 12/18 0800 12/18 0000 Intake Total 750 358 88 3375 450 0 Output Total 650 600 200 210 Balance 750 -550 -550 800 240 0 Intake, IV 400 450 Intake, Oral 750 100 50 600 0 Number 1 Bowel Movements Output, Urine 650 600 200 210 Patient 220 lb Weight Weight Reported by Patient Measurement Method Physical Exam: General: WD/WN female in NAD; alert and oriented x 3 HEENT: NC/AT, PERRL, EOMI Neck: no JVD, no carotid bruit Heart: RRR with rub Lungs: clear bilaterally Abdomen: soft, NT, +ve bowel sounds Extremities: 1+ leg edema bilaterally Assessment/Plan Assessment/Plan * This patient has a small pericardial effusion with mild tamponade physiology of unclear etiology. There was some transient tachcycardia which is improved and the patient has an ECG that shows low voltage in the limb leads. She is not lightheaded however. At this point I would encourage oral intake of fluids but the patient is now euvolemic. * The differential for this pericardial effusion includes but is not limited to infections such as Coxackie B, Echovirus, TB, varicella and other viruses; rheumatologic conditions such as RA and SLE and rheumatoid arthritis; malignancies most commonly lung CA, breast CA, lymphoma and melanoma: certain drugs and post [place] syndromes. Uremia and hypothyroidism are also common causes. Some of the above are not likely to be the cause in this patient. Agree with checking an SHAYY and RF since the patient does carry a history or arthritis. Check for Coxackie B and Echovirus and mycoplasma. I would obtain a dermatology consult which can be done as an outpatient to assess for skin malignancy. TFT's are in the normal range. * Dr. Santa had previously treated with this patient with Indomethacin and it resulted in renal insufficiency. We will therefore continue with colchicine and steroids as previously prescribed. Creatinine is currently in the normal range. * If the patient develops a pleural effusion of large enough size for thoracentesis then I would pursue this procedure for diagnostic purposes and check for cytology and CEA as well as adenosine deaminase etc. We will also ask Dr. Nielsen to evaluate for a pleural biopsy tomorrow. Repeat a limited echo to assess for resolution of tamponade physilogy. Continue telemetry? Yes
[2017-12-19 22:59] VITALS: BP 132/92
[2017-12-20 06:47] VITALS: BP 138/90
--- NOTE | 2017-12-20 07:05 | PN- Housestaff ---
Subjective Follow-up For: Chest Pain Echocardiogram showing pleural effusion Tele-Events Since Last Visit: NSR, First degree AVB, 65, 0.08, 0.22 Subjective: Patient seen and examined at bedside this morning. She denies any shortness of breath or chest pain this morning. Patient pending repeat echo and blood work today. Review of Systems Constitutional: Denies: see HPI. Objective Last 24 Hrs of Vital Signs/I&O Vital Signs Date Time Temp Pulse Resp B/P B/P Pulse O2 O2 Flow FiO2 Mean Ox Delivery Rate 12/20 0647 97.9 71 20 138/90 97 Nasal Cannula 12/19 2259 98.6 74 22 132/92 95 Nasal Cannula 12/19 1453 98.8 79 20 118/70 94 Room Air 12/19 0808 74 122/70 Intake & Output 12/20 1600 12/20 0800 12/20 0000 Intake Total Output Total 500 1000 Balance -500 -1000 Output, Urine 500 1000 Patient 220 lb Weight Physical Exam General Appearance: Alert, Oriented X3, Cooperative, No Acute Distress HEENT: Atraumatic, PERRLA, EOMI, Mucous Membr. moist/pink Neck: Supple, No JVD Cardiovascular: Regular Rate, Normal S1, Normal S2, No Murmurs Lungs: Clear to Auscultation, Normal Air Movement Abdomen: Normal Bowel Sounds, Soft, No Tenderness Neurological: Normal Speech, Strength at 5/5 X4 Ext, Normal Tone, Sensation Intact Extremities: No Clubbing, No Cyanosis, +1 edema in bilateral lower extremities Vascular: Normal Pulses, Pulses Symmetrical Current Medications: Current Medications Sig/Britney Start time Last Medication Dose Route Stop Time Status Admin Aspirin 81 MG DAILY 12/18 899 AC 12/19 PO 08 Atorvastatin Calcium 10 MG 17012/18 1700 AC 12/19 PO 1732 Colchicine 600 MCG BID 12/19 2100 DC PO Colchicine 600 MCG BID 12/19 1300 AC 12/19 PO 2033 Colchicine 600 MCG BID 12/17 1930 DC 12/19 PO 0808 Enoxaparin Sodium 40 MG DAILY 12/18 899 AC 12/19 SC 0809 Indomethacin Sodium 50 MG TID 12/19 0845 DC PO Levothyroxine Sodium 0.1 MG DAILY AC 12/18 699 AC 12/20 PO 0511 Losartan Potassium 25 MG DAILY 12/18 899 AC 12/19 PO 0808 Metformin HCl 500 MG 0800,1700 12/18 0800 AC 12/19 PO 1732 Prednisone 40 MG DAILY 12/19 899 AC 12/19 PO 0809 Vitamin E 400 IU DAILY 12/18 899 AC 12/19 PO 08 Last 24 Hrs of Lab/Aureliano Results Last 24 Hrs of Labs/Mics: Laboratory Tests 12/20/17 0630: Sodium Pending, Potassium Pending, Chloride Pending, Carbon Dioxide Pending, Anion Gap Pending, BUN Pending, Creatinine Pending, BUN/Creatinine Ratio Pending , CBC w Diff Pending, WBC Pending, RBC Pending, Hgb Pending, Hct Pending, MCV Pending, MCH Pending, MCHC Pending, RDW Pending, Plt Count Pending, MPV Pending 12/19/17 1100: TSH 1.490, Free T4 1.51, Ref Lab Test Result Pending, Ref Lab Test Result Pending, M.pneumoniae IgG Titer Pending, M.pneumoniae IgM (IFA) Pending Assessment/Plan Assessment: A/P: Patient is a 77 year old female with past medical hjistory of hypothyroidism, hyperlipidemia, PVD, GERD who presented to with left sided chest pain referred by Dr. Santa due to a pericardial effusion seen on her chest CT and elevated inflammatory markers. Problem List: 1. Pericardial Effusion PERICARDIAL EFFUSION * Dr. Nielsen consulted 12/20 for possible VATS/pleural biopsy; possible thoracocentesis if pleural effusion becomes larger; check for cytology, THU, ADA 12/20: does not recommend going after the pericardial effusion as it is small and no diagnostic/therapeutic relevance from pursuing Pleural effusion: continue anti-inflammatory treatment and reevaluate; if persistent pleural changes with symptoms can consider VATS biopsy and pleurodesis * Patient seen by Dr. Cox 12/20 today; pending repeat ECHO Result to evaluate effusion and if not changed may be discharged home for further outpatient management * F/u SHAYY, RF, anti DISTRICT DIRECTOR, coxsackie, echo, mycoplasma, RH panel, Sclero AB; f/u lyme titer * Repeat ECHO * continue with Colchicine 600mcg BID; watch for diarrhea and leukopenia * continue oral prednisone p.o 4mg daily * dermatology consult which can be done outpatient to assess for skin malignancy Code: DNR/DNI Diet: Diabetic carb consistent and Accu-Check, Metformin DVT PPx: Lovenox Problem List: 1. Pericardial effusion 2. Pericarditis Pain Ratin Pain Location: Patient denies pain today Pain Goal: Remain pain free Pain Plan: As per pain pathway Tomorrow's Labs & Rationales: CBC BEP DVT/Prophylaxis: pharmacological
[2017-12-20 08:14] LABS: ABSOLUTE BASOPHIL COUNT 0 /CUMM (0.0-0.2); ABSOLUTE EOSINOPHIL COUNT 0.1 /CUMM (0.0-0.7); ABSOLUTE GRANULOCYTE CT 4.7 /CUMM (1.4-6.5); ABSOLUTE LYMPH COUNT 1.9 /CUMM (1.2-3.4); ABSOLUTE MONOCYTE COUNT 0.3 /CUMM (0.10-0.60); BASOPHIL % 0.6 % (0.0-2.0); EOSINOPHIL % 1.2 % (0-5); GRANULOCYTE % 66.8 % (42.2-75.2); HEMATOCRIT 32.5 % (37-47); MEAN CORPUSCULAR HGB 27.1 PG (27.0-31.0); MEAN CORPUSCULAR HGB CONC 33.2 G/DL (33.0-37.0); MEAN CORPUSCULAR VOLUME 81.7 FL (81.0-99.0); MEAN PLATELET VOLUME 7.7 FL (7.4-10.4); PLATELET COUNT 334 /CUMM (130-400); RBC DISTRIBUTION WIDTH 15.4 % (11.5-14.5); RED BLOOD CELL CT 3.98 /CUMM (4.20-5.40)
--- NOTE | 2017-12-20 12:31 | PN- Cardiology ---
Subjective Subjective: The patient is awake, alert The patient's echocardiogram performed on December 19 was reviewed. There is no evidence of tamponade physiology. There is a small, circumferential pericardial effusion with thickened pericardium and preserved LV systolic function. The events of the last 24 hours as well as telemetry were reviewed. Review of Systems: The review of systems is negative for chest pains, palpitations nor lightheadedness. The remainder of the 14 point review of systems is noncontributory with the exception of above. Objective Vital Signs and I&Os Vital Signs Date Time Temp Pulse Resp B/P B/P Pulse O2 O2 Flow FiO2 Mean Ox Delivery Rate 12/20 0647 97.9 71 20 138/90 97 Nasal Cannula 12/19 2259 98.6 74 22 132/92 95 Nasal Cannula 12/19 1453 98.8 79 20 118/70 94 Room Air Intake & Output 12/20 1600 12/20 0800 12/20 0000 12/19 1600 12/19 0800 12/19 0000 Intake Total 750 100 50 Output Total 500 1000 650 600 Balance -500 -1000 750 -550 -550 Intake, Oral 750 100 50 Output, Urine 500 1000 650 600 Patient 220 lb Weight Physical Exam: General: Nontoxic, no apparent distress. HEENT: Sclera and conjunctiva within normal limits, without xanthelasmas. Neck: Carotids 2+ without bruits. Respiratory: Clear to auscultation, air movement is good, without accessory respiratory muscle use. Heart: Regular rate and rhythm, without murmurs, without JVD, no friction rub is appreciated. Abdomen: Soft, nontender, no masses, normoactive bowel sounds. Extremities: Without clubbing, cyanosis, without edema. Neuro: Nonfocal exam, strength, 5 out of 5 Skin: Within normal limits without lesions. Psych: Mood and affect: Normal Current Medications: Current Medications Sig/Britney Start time Last Medication Dose Route Stop Time Status Admin Aspirin 81 MG DAILY 12/18 0900 AC 12/20 PO 0822 Atorvastatin Calcium 10 MG 1700 12/18 1700 AC 12/19 PO 1732 Colchicine 600 MCG BID 12/19 2100 DC PO Colchicine 600 MCG BID 12/19 1300 AC 12/20 PO 0822 Enoxaparin Sodium 40 MG DAILY 12/18 899 AC 12/20 SC 0821 Levothyroxine Sodium 0.1 MG DAILY AC 07/699 AC 12/20 PO 0511 Losartan Potassium 25 MG DAILY 12/18 899 AC 12/20 PO 08 Metformin HCl 500 MG 0800,1700 12/19 799 AC 12/20 PO 08 Prednisone 40 MG DAILY 12/19 899 AC 12/20 PO 821 Vitamin E 400 IU DAILY 12/18 899 AC 12/20 PO 821 Results Last 48 Hrs of Labs/Mics: Laboratory Tests 12/20/17 0630: Anion Gap 10, Estimated GFR 54 L, BUN/Creatinine Ratio 30.0 H, CBC w Diff NO MAN DIFF REQ, RBC 3.98 L, MCV 81.7, MCH 27.1, MCHC 33.2, RDW 15.4 H, MPV 7.7, Gran % 66.8, Lymphocytes % 26.7, Monocytes % 4.7, Eosinophils % 1.2, Basophils % 0.6, Absolute Granulocytes 4.7, Absolute Lymphocytes 1.9, Absolute Monocytes 0.3 , Absolute Eosinophils 0.1, Absolute Basophils 0 12/19/17 1100: TSH 1.490, Free T4 1.51, Ref Lab Test Result Pending, Ref Lab Test Result Pending, M.pneumoniae IgG Titer Pending, M.pneumoniae IgM (IFA) Pending 12/19/17 0650: CBC w Diff NO MAN DIFF REQ, RBC 3.96 L, MCV 82.5, MCH 26.5 L, MCHC 32.2 L, RDW 14.9 H, MPV 7.5, Gran % 72.9, Lymphocytes % 20.7, Monocytes % 5.2, Eosinophils % 0.8, Basophils % 0.4, Absolute Granulocytes 5.7, Absolute Lymphocytes 1.6, Absolute Monocytes 0.4, Absolute Eosinophils 0.1, Absolute Basophils 0 12/18/17 1815: ESR Westergren 57 H, Scl-70 Ab Confirm Pending Assessment/Plan Assessment/Plan The patient is a 77-year-old woman with a past medical history of hypertension, hyperlipidemia, osteoarthritis and pleurisy of an unclear etiology. She presented following the finding of a pericardial effusion. Pericardial effusion: The patient has a small pericardial effusion without clear hemodynamic effect. She has been initially started on colchicine as well as given steroids. A workup as to the etiology of her effusion has been initiated. At this time, we should consider discontinuance of her airways unless necessary from a pulmonary standpoint. The addition of a nonsteroidal anti-inflammatory to her regimen of colchicine would as well be recommended, and continued for a period of approximately 14 days we will await the results of her recent workup, and I would as well had a Lyme titer to her testing. A repeat echocardiogram is scheduled for today to evaluate her effusion, and if not significantly changed, she may be discharged to home with further outpatient management and workup. Continue telemetry? No
--- NOTE | 2017-12-20 12:33 | Cons- Thoracic Surgery ---
General Information and HPI Consulting Request Date of Consult: 12/20/17 Requested By: Kiet BAY,Sadi Romero Reason for Consult: Pericardial and pleural effusions Source of Information: patient, family, old records, PCP Exam Limitations: no limitations History of Present Illness: Patient is a 77-year-old woman who is being evaluated by Dr. Santa late last week. She was noted to have pleuritic pain and degree of tachycardia. She was sent to the emergency room admitted with findings of a pericardial effusion along with a small pleural effusion and left lower lobe consolidation. Thoracic surgical evaluation is asked and help in management and treatment. Allergies/Medications Allergies: Coded Allergies: No Known Allergies (12/17/17) Home Med List: Acetaminophen (8 Hour Pain Relief) 650 MG TABLET.ER 2 TAB PO DAILY PAIN ( Reported) Aspirin (Aspirin*) 81 MG TAB.CHEW 1 TAB PO DAILY HEART HEALTH (Reported) Calcium Carbonate/Vitamin D3 (Caltrate 600 + D Tablet) (Unknown Strength) TABLET (Unknown Dose) PO DAILY SUPPLEMENT (Reported) Cholecalciferol (Vitamin D3) (Vitamin D) 1,000 UNIT TABLET 1 TAB PO DAILY VITAMIN (Reported) Colchicine 0.6 MG TABLET 1 TAB PO DAILY INFLAMMATORY (Reported) Ferrous Sulfate 325 MG (65 MG IRON) TABLET 1 TAB PO QWED SUPPLEMENT (Reported ) Levothyroxine Sodium 100 MCG TABLET 1 TAB PO DAILY THYROID (Reported) Losartan Potassium 25 MG TABLET 1 TAB PO DAILY HTN (Reported) Multiple Vitamin (Multivitamins) 1 EACH TABLET 1 TAB PO TUESSAT VITAMIN ( Reported) Simvastatin (Zocor*) 20 MG TABLET 1 TAB PO QPM CHOLESTEROL (Reported) Vitamin E 400 UNIT CAPSULE 1 CAP PO DAILY SUPPLEMENT (Reported) Current Medications: Current Medications Sig/Britney Start time Last Medication Dose Route Stop Time Status Admin Aspirin 81 MG DAILY 12/18 899 AC 12/20 PO 0822 Atorvastatin Calcium 10 MG 1700 12/18 1700 AC 12/19 PO 1732 Colchicine 600 MCG BID 12/19 2100 DC PO Colchicine 600 MCG BID 12/19 1300 AC 12/20 PO 0822 Enoxaparin Sodium 40 MG DAILY 12/18 899 AC 12/20 SC 0821 Levothyroxine Sodium 0.1 MG DAILY AC 12/18 0700 AC 12/20 PO 0511 Losartan Potassium 25 MG DAILY 12/18 899 AC 12/20 PO 0822 Metformin HCl 500 MG 0800,1700 12/19 799 AC 12/20 PO 0822 Patient Medication 1 ED ONE ONE 12/20 1230 Teaching ED 12/20 1231 Prednisone 40 MG DAILY 12/19 899 AC 12/20 PO 0822 Vitamin E 400 IU DAILY 12/18 899 AC 12/20 PO 08 Past History Medical History Blood Transfusion Hx: No Neurological: NONE EENT: cataracts Cardiovascular: hypertension, hyperlipidemia, PVD Respiratory: NONE Gastrointestinal: GERD Hepatic: NONE Renal: NONE Musculoskeletal: NONE (bilateral knee replacement), osteoarthritis Psychiatric: NONE Endocrine: hypothyroidism Blood Disorders: NONE Cancer(s): NONE CREDIT ADVISOR/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: UTERINE PROLAPSE Surgical History Pertinent Surgical History: non-contributory, appendectomy, knee replacement Psychosocial History Smoking Status: Unknown If Ever Smoked ETOH Use: denies use Illicit Drug Use: denies illicit drug use Review of Systems Review of Systems: Is notable for the pain which is pleuritic in nature. Is been present for quite a while as long as 2013. She does have some low-grade exertional dyspnea but that has gotten better recently. She describes no fevers night sweats or chills. The rest of her 12 point review of systems is unremarkable. Exam & Diagnostic Data Vital Signs and I&O Vital Signs Date Time Temp Pulse Resp B/P B/P Pulse O2 O2 Flow FiO2 Mean Ox Delivery Rate 12/20 0647 97.9 71 20 138/90 97 Nasal Cannula 12/19 2259 98.6 74 22 132/92 95 Nasal Cannula 12/19 1453 98.8 79 20 118/70 94 Room Air Intake & Output 12/20 1600 12/20 0000 12/19 1600 12/19 0000 Intake Total 750 100 50 Output Total 500 1000 650 600 Balance -500 -1000 750 -550 -550 Intake, Oral 750 100 50 Output, Urine 500 1000 650 600 Patient 220 lb Weight Physical Exam: On physical examination she appears well. Her skin is warm and well perfused with no suspicious lesions noted. The sclerae are anicteric mucous membranes are moist. There is no cervical or subclavicular lymphadenopathy. Her breath sounds are clear and diminished at the left base. There is no pleural rub and no wheezes or rhonchi. Cardiac exam shows a regular rhythm and rate with no murmurs or extra sounds. The abdomen is soft and nontender with no masses. The periphery shows no cyanosis clubbing or edema. Her neurologic exam is grossly normal motor and sensory function. Last 24 Hours of Labs: Laboratory Tests 12/20 0630 Chemistry Sodium (137 - 145 mmol/L) 142 Potassium (3.5 - 5.1 mmol/L) 4.6 Chloride (98 - 107 mmol/L) 106 Carbon Dioxide (22 - 30 mmol/L) 26 Anion Gap (5 - 16) 10 BUN (7 - 17 mg/dL) 30 H Creatinine (0.5 - 1.0 mg/dL) 1.0 Estimated GFR (>60 ml/min) 54 L BUN/Creatinine Ratio (7 - 25 %) 30.0 H Hematology CBC w Diff NO MAN DIFF REQ WBC (4.8 - 10.8 /CUMM) 7.0 RBC (4.20 - 5.40 /CUMM) 3.98 L Hgb (12.0 - 16.0 G/DL) 10.8 L Hct (37 - 47 %) 32.5 L MCV (81.0 - 99.0 FL) 81.7 MCH (27.0 - 31.0 PG) 27.1 MCHC (33.0 - 37.0 G/DL) 33.2 RDW (11.5 - 14.5 %) 15.4 H Plt Count (130 - 400 /CUMM) 334 MPV (7.4 - 10.4 FL) 7.7 Gran % (42.2 - 75.2 %) 66.8 Lymphocytes % (20.5 - 51.1 %) 26.7 Monocytes % (1.7 - 9.3 %) 4.7 Eosinophils % (0 - 5 %) 1.2 Basophils % (0.0 - 2.0 %) 0.6 Absolute Granulocytes (1.4 - 6.5 /CUMM) 4.7 Absolute Lymphocytes (1.2 - 3.4 /CUMM) 1.9 Absolute Monocytes (0.10 - 0.60 /CUMM) 0.3 Absolute Eosinophils (0.0 - 0.7 /CUMM) 0.1 Absolute Basophils (0.0 - 0.2 /CUMM) 0 Imaging Results: CT scan of the chest shows a small pericardial effusion along with a small left pleural effusion and some consolidation of the left lower lobe at the base. There is some pleural thickening. Other Results: Echocardiography that I reviewed in the office shows a small pericardial effusion and no evidence of tamponade. Assessment/Plan Assessment/Plan 77-year-old with an obvious inflammatory process with an elevated sedimentation rate along with oral and pericardial reactive processes. I would not go after the pericardial effusion as it is small effusion and I do not not think there is anything diagnostic or therapeutic in pursuing it. In regards to the left pleural effusion the patient is been started now on anti-inflammatories in the form of bread zone and I would continue this treatment and reevaluate. Previous CT scans had shown some evidence of a pleural process on the left side but no degree of consolidation. For now I would treat medically and reevaluate after a course of treatment. If there is persistent pleural changes with symptoms then VATS pleural biopsy and pleurodesis would be indicated. Consult Acknowledgment - Thank you for your consult request.
[2017-12-20] MEDS ORDERED: GLUCOPHAGE500 M1 PO ×2 (13:41→14:04)
[2017-12-20] MEDS ORDERED: PREDNISONE20 M1 PO (13:41)
--- NOTE | 2017-12-20 13:45 | PN- Pulmonary ---
Subjective HPI/Critical Care Issues: Doing well stable Cardio note reviewed The review of systems is negative for chest pains, palpitations nor lightheadedness. The remainder of the 14 point review of systems is noncontributory with the exception of above. Objective Current Medications: Current Medications Sig/Britney Start time Last Medication Dose Route Stop Time Status Admin Aspirin 81 MG DAILY 12/18 899 AC 12/20 PO 0822 Atorvastatin Calcium 10 MG 1700 12/18 1700 AC 12/19 PO 1732 Colchicine 600 MCG BID 12/19 1300 AC 12/20 PO 0822 Enoxaparin Sodium 40 MG DAILY 12/18 899 AC 12/20 SC 0821 Levothyroxine Sodium 0.1 MG DAILY AC 12/18 07 AC 12/20 PO 0511 Losartan Potassium 25 MG DAILY 12/18 899 AC 12/20 PO 0822 Metformin HCl 500 MG 0800,1700 12/18 08 AC 12/20 PO 0822 Patient Medication 1 ED ONE ONE 12/20 1230 DC Teaching ED 12/20 1231 Prednisone 40 MG DAILY 12/19 899 AC 12/20 PO 0822 Vitamin E 400 IU DAILY 12/18 899 AC 12/20 PO 0822 Vital Signs & I&O Last 24 Hrs of Vitals and I&O: Vital Signs Date Time Temp Pulse Resp B/P B/P Pulse O2 O2 Flow FiO2 Mean Ox Delivery Rate 12/20 0647 97.9 71 20 138/90 97 Nasal Cannula 12/19 2259 98.6 74 22 132/92 95 Nasal Cannula 12/19 1453 98.8 79 20 118/70 94 Room Air Intake & Output 12/20 1600 12/20 0812/20 0000 Intake Total Output Total 500 1000 Balance -500 -1000 Output, Urine 500 1000 Patient 220 lb Weight Impression/Plan Impression/Plan Impression/Plan: Patient is a 77-year-old female with history of pleurisy, recurrent left sided chest pain and recent CT and echo revealing a small pericardial effusion with elevated ESR, CRP and elevated BNP. Findings are concerning for pericarditis. Patient has been started on colchicine 600 mg twice a day and IV Solu-Medrol 40 mg daily in the ED. Issues Pleuropericarditis prob idiopathic with previous inflammatory work up neg full work up pending Pericardial effusion no tamponade with recent echo Rule out other causes likel malignancy (seems unlikely) Glucose intol Previous CKD with previous intol to NSAID Hypothyroid and htn and hld stable REC Dc on po prednisone 30 mg for four weeks and then 20 mg for one month and 10 mg after Colchicine bid Metformin bid Add lyme titre to blood work Ok to dc on home meds Will follow as out pt Strict low tosha diet
--- NOTE | 2017-12-20 13:49 | Patient Discharge Instructions ---
Discharge Instructions General Discharge Information You were seen/treated for: Pericardial Effusion Pleuritic Chest Pain You had these procedures: Echocardiogram Watch for these problems: Chest pain, palpitations, shortness of breath, hemoptysis Special Instructions: Please follow up with PCP Dr. Santa within 1 week of discharge Please follow up with Tax Staff Accountant within 1 week of discharge Please follow up with Cardiothoracic Surgery if needed within 2 weeks of discharge Please return to the ED if worsening symptoms of shortness of breath, hemoptysis , chest pain/palpitations Activity Full Activity/No Limits: Yes (as tolerated) Acute Coronary Syndrome Inclusion Criteria At DC or during hospital stay patient has or had the following: ACS DIAGNOSIS No Discharge Core Measures Meds if any: Prescribed or Continued at Discharge Meds if any: NOT Prescribed or Continued at Discharge Congestive Heart Failure Inclusion Criteria At DC or during hospital stay patient has or had the following: CHF DIAGNOSIS No Discharge Core Measures Meds if any: Prescribed or Continued at Discharge Meds if any: NOT Prescribed or Continued at Discharge Cerebrovascular accident Inclusion Criteria At DC or during hospital stay patient has or had the following: CVA/TIA Diagnosis No Discharge Core Measures Meds if any: Prescribed or Continued at Discharge Meds if any: NOT Prescribed or Continued at Discharge Venous thromboembolism Inclusion Criteria VTE Diagnosis No VTE Type NONE VTE Confirmed by (Test) NONE Discharge Core Measures - Per Current guidelines, there needs to be overlap - treatment for the first 5 days of Warfarin therapy. - If discharged on Warfarin prior to 5 days of - overlap therapy, the patient will need to be - assessed for post discharge needs including - *Post discharge parental anticoagulation - *Warfarin and/or parental anticoagulation education - *Follow up date to check INR post discharge At least 5 days overlap therapy as Inpatient No Meds if any: Prescribed or Continued at Discharge Note: Overlap Therapy is Warfarin and Anticoagulant Meds if any: NOT Prescribed or Continued at Discharge
--- NOTE | 2017-12-20 13:51 | Discharge Summary ---
Visit Information Visit Dates Admission Date: 12/19/17 Discharge Date: 12/20/17 Hospital Course Course Attending Physician: Sadi Santa MD Primary Care Physician: Sadi Santa MD Hospital Course: Patient is a 77 year old female who was referred to the ED by Dr. Santa her primary care physician for pericardial effusion that was seen on a chest scan as well as elevated inflammatory markers ESR (75) and CRP (4.4). Patient was accompanied by her two daughters at the time. The patient has had a history of pleuritic chest pain with the first episode in 2013 while in [place]. An ECHO daniel done at that time which she does not recall any abnormality and loss of access to the report. Since last April 2017 she has had the chest pain intermitently as well. When this chest pain arrives, it lasts for a few days and goes away by itself. Deep breathing and sneezing make the pain worse and leaning forward does nto improve it. The pain can get as severe as an 8/10 but was a 0/ 10 during admission but mild pain on taking a deep breath. Patient was started on 600mg Colchicine BID from November which was reduced to QD after she developed diarrhea. Otherwise, patient denied any symptoms of a viral prodromal on admission. Indomethacin was not considered an option as per Dr. Santa patient has had kidney injury in the past. On Admission Patients Labs: WBC 6.3, H&H 11.4 and 35, platelets 416, ESR 75 Sodium 143, potassium 4.5, chloride 105, bicarbonate 28, BUN 17, creatinine 1, glucose 113, alkaline phosphatase 135, AST 22, ALT 33, T bili 0.6, CRP 4.4, troponin less than 0.01, BNP 1000 ED Course: Patient was started on IV solumedrol and given colchicine 600mg. Serial Imaging: Chest CT: IMPRESSION: 1. Consolidation of the left lung base with associated small pleural effusion. Clinical correlation is recommended. An acute infection process is within the differential. 2. Interval development of small to moderate sized pericardial effusion. 3. There is mild mediastinal shift to the left which appears mildly more prominent than cross-sectional imaging from May 2017. This difference may be due to differences in patient positioning. Echo: 1. Normal EF of 60%. 2. Mild pulmonic insufficiency. 3. Small pericardial effusion with mild tamponade physiology. Patient was admitted to the telemetry unit for further monitoring of her chest pain. Problem List: 1. Pericardial Effusion PERICARDIAL EFFUSION Patient was admitted to the telemetry for futher monitoring of any cardiogenic event given her chest pain and elevated BNP. Serial troponin and EKGs were negative for any acute cardiac events of signfiicance. Cardiology was consulted and Dr. Beebe was on board. Cardiothoracic surgery was consulted. Dr. Santa followed the patients case. Vital signs were taken each shift. Repeat ECHO was ordered after 12/17 that demonstrated pericardial effusion for further monitoring. RH panel, sclero AB, echovirus, mycoplasma, coxackie B and lyme titer were ordered for further evaluation of possible pericarditis. TSH/T4 was ordered. Patient was continued on Colchicine 600 and predinisone 40 qd. Indomethacin was not considered an option as per Dr. Santa patient has had kidney injury in the past. Patient remained asymptomatic during her stay unless deep breaths were taken. Dr. Nielsen cleared from a CT surgery perspective as no window was needed as the pericardial effusion was too small for any diagnostic/therapeutic relevance. No evidence of tampanoode physiology was demonstrated on echo and no significant events on the telemetry. Patient was cleared by cardiology stand point but advised to follow up outpatient. Patient wanted to see Dr. Ricci outpatient as her follows up with him as well. Patient was advised to follow up with CT surgery as well and see Dr. Santa. Lab work up can be followed up outpatient. Patient discharged on a prednisone taper as per Dr. Santa and began on Metformin for further diabetic control. Patient advised to return to ED with worsening shortness of breath, chest pain, hemoptysis. Code Status: DNR/DNI DVT PPx: Heparin SC Diet: Regular Allergies: Coded Allergies: No Known Allergies (12/17/17) Disposition Summary Disposition Principal Diagnosis: Pericardial Effusion Additional Diagnosis: Pericarditis Discharge Disposition: home or self care Discharge Instructions General Discharge Information Code Status: Do Not Resucitate/Intubat Patient's Diet: Regular Patient's Activity: As tolerated Follow-Up Instructions/Appts: Please follow up with PCP within 1 week discharge Please follow up with cardiology within 1 week of discharge Please follow up with pulmonology within 1 week of discharge Please follow up with CT Surgery within 1 week of discharge Medications at Discharge Discharge Medications: Continue taking these medications: Levothyroxine Sodium (Levothyroxine Sodium) 100 MCG TABLET 1 Tablet ORAL DAILY Comments: Last Taken: 12/20/17 Time: 6 AM Simvastatin (Zocor*) 20 MG TABLET 1 Tablet ORAL Every night Comments: Last Taken: 12/19/17 Time: 5:30 PM Losartan Potassium (Losartan Potassium) 25 MG TABLET 1 Tablet ORAL DAILY Qty = 90 Comments: Last Taken: 12/20/17 Time: 9 AM Aspirin (Aspirin*) 81 MG TAB.CHEW 1 Tablet ORAL DAILY Comments: Last Taken: 12/20/17 Time: 9 AM Cholecalciferol (Vitamin D3) (Vitamin D) 1,000 UNIT TABLET 1 Tablet ORAL DAILY Comments: DID NOT RECIEVE Multiple Vitamin (Multivitamins) 1 EACH TABLET 1 Tablet ORAL TUESSAT Comments: DID NOT RECIEVE Calcium Carbonate/Vitamin D3 (Caltrate 600 + D Tablet) (Unknown Strength) TABLET Unknown Dose ORAL DAILY Comments: DID NOT RECIEVE Ferrous Sulfate (Ferrous Sulfate) 325 MG (65 MG IRON) TABLET 1 Tablet ORAL EVERY WEDNESDAY Comments: DID NOT RECIEVE Vitamin E (Vitamin E) 400 UNIT CAPSULE 1 Capsule ORAL DAILY Comments: Last Taken: 12/20/17 Time: 9 AM Acetaminophen (8 Hour Pain Relief) 650 MG TABLET.ER 2 Tablet ORAL DAILY Comments: DID NOT RECIEVE Start taking the following new medications: Metformin Hydochloride (Glucophage) 500 MG TABLET 500 Milligram ORAL 0800,1700 Qty = 60 No Refills Instructions: . Comments: Last Taken: 12/20/17 Time: 9 AM Prednisone (Prednisone) 10 MG TABLET 1 Tablet ORAL See Instructions Qty = 168 No Refills Instructions: TAKE 3 TABLETS DAILY FOR 4 WEEKS TAKE 2 TABLETS DAILY FOR 4 WEEKS TAKE 1 TABLET DAILY FOR 4 WEEKS THEN SEE PCP. Comments: Last Taken: 12/20/17 Time: 9 AM The following medications have been changed: Old: Colchicine (Colchicine) 0.6 MG TABLET 1 Tablet ORAL DAILY Qty = 60 New: Colchicine (Colchicine) 0.6 MG TABLET 1 Tablet ORAL TWICE DAILY Qty = 60 Comments: Last Taken: 12/20/17 Time: 9 AM Copies To: Kiet BAY,Sadi Romero
[2017-12-20] MEDS ORDERED: COLCHICINE0.6 M2 PO (14:04)
[2017-12-20] MEDS ORDERED: PREDNISONE10 M2 PO ×2 (14:04→14:46)
--- NOTE | 2017-12-20 20:59 | ECHOCARDIOGRAM REPORT ---
BOBBY WRIGHT Age: 77 : 1940 Gender: F Exam Date: 12/20/2017 10:53 Exam Location: 1 [address] Ht (in): 65 Wt (lb): 220 BSA: 2.18 BP: 136 / 90 Ordering Physician: Roman Timmons MD Referring Physician: Roman Timmons MD Technologist: Jesus Cassidy [facility] Room Number: 174-2 Indications: PERICARDIAL EFFUSION Rhythm: Technical Quality: Limited study FINDINGS Left Ventricle Left ventricle not well visualized, grossly normal. Right Ventricle Right ventricle not well visualized, grossly normal. Right Atrium Right atrium not well visualized, grossly normal. Left Atrium Left atrium not well visualized, grossly normal. Mitral Valve Mitral valve not well visualized, grossly normal. Aortic Valve Aortic valve not well visualized, grossly normal. Tricuspid Valve Tricuspid valve not well visualized, grossly normal. Pulmonic Valve Pulmonic valve not well visualized, grossly normal. Pericardium Small pericardial effusion. Left pleural effusion. Great Vessels Aortic root and proximal ascending aorta not well visualized. CONCLUSIONS Limited study. Small Pericardial effusion. Small to moderate pleural effusion Justin Ricci M.D. (Electronically Signed) Final Date: 20 December 2017 20:54 MEASUREMENTS (Male / Female) Normal Values
== END 2017-12-20 15:05 | DRG 316 ==
LOC: ERH 15:57 → 1NO 20:02 → ERHI 20:02 → 1NO 20:02 → ENRESERV 20:32 → ENTRNSPT 21:33 → CMPTRNSPT 21:57 → 1NO 22:07 → ENPENDDIS 12-20 14:05 → ENTRNSPT 12-20 14:50 → 1NO 12-20 15:05 → EDTRNSPTSTS 12-20 15:42 → CMPTRNSPT 12-20 15:48
PROVIDERS: Hospitalist; Physician Assistant Medical; Student in an Organized Health Care Education/Training Program
DX: I31.3 Pericardial effusion (noninflammatory) (principal); I73.89 Other specified peripheral vascular diseases; I31.4 Cardiac tamponade; I12.9 Hypertensive chronic kidney disease with stage 1 through stage 4 chronic kidney disease, or unspecified chronic kidney disease; N18.9 Chronic kidney disease, unspecified; R00.0 Tachycardia, unspecified; Z66 Do not resuscitate; I31.9 Disease of pericardium, unspecified
CPT/HCPCS: 1NSP; 6020; 86618; 36415; 36592; 81003; 82436; 86325; 86431; 93005; 93010; 93306; 93308; 93321; G0378; G0480; J1650; J2920; J2930; J3490; J7040